=== PATIENT | female | born 1980 | race Caucasian/White ===

== ENCOUNTER 2016-09-02 21:35 | Emergency (ER) | payer BC, OTHER ==
--- NOTE | ~2016-09-02 | CT2 ---
[facility] A Service of [facility] / [facility] RADIOLOGY TEXT RESULTS PATIENT: CHANTAL JULIAN LOCATION: SED : [birth year] UNIT #: [id number] AGE: [address]: Elsi Mcclain MD SEX: F ORDER DR: [id number] [address] [address] [id number] E MR#: [id number] Acc #: [id number] NAME: CHANTAL JULIAN : 1980 SEX: F STUDY DATE/TIME: 09/03/2016 0:37 UNIT: SED ROOM: STUDY DESCRIPTION: CT Abd and Pelv W Cont Attending Physician: Elsi Mcclain M.D. Ordering Physician: Elsi Mcclain M.D. Primary Care Physician: Jaron Roque M.D. MEDICAL IMAGING REPORT This report is preliminary unless electronic signature is present. EXAM CT abdomen and pelvis, with contrast HISTORY Abdominal pain and distention for 4 hours. Elevated white blood cell count. COMPARISON None TECHNIQUE The patient was given 100 mL of Isovue-370, and axial 5-mm images were obtained through the abdomen and pelvis. Sagittal and coronal reconstructions were generated. This CT exam was performed with one or more of the following radiation dose reduction techniques: automatic exposure control, adjustment of mA and/or kV according to patient size, and iterative reconstruction. FINDINGS The lung bases are clear. The liver, gallbladder, spleen, pancreas, adrenal glands, and kidneys are normal in appearance. The aorta is normal in size, and there is no adenopathy. The bowel is normal. The uterus, adnexal regions, and bladder are normal. I do not see the appendix, but I do not see any evidence of appendicitis. The bones are unremarkable. IMPRESSION 1. It is difficult to see the appendix, but I do not see any evidence of appendicitis. 2. Study appears normal. [facility] A Service of [facility] / [facility] RADIOLOGY TEXT RESULTS PATIENT: CHANTAL JULIAN LOCATION: SED : [birth year] UNIT #: [id number] AGE: [address]: Elsi Mcclain MD SEX: F ORDER DR: Dictated by... Keegan Pickard M.D. THIS IS AN ELECTRONICALLY VERIFIED REPORT Keegan Pickard M.D. at 09/03/2016 1:43 PM MENDEL/vu TD: 09/03/2016 13:40 JOB #: [id number] MEDICAL IMAGING REPORT Page 1 of 1
[~2016-09-02 21:35] MED LIST: BACTRIM DS TABL1 TA1 PO; BAYER CHEWABLE81 MG PO; CARTIA XT PO; GARCINIA CAMBO1 EACH; IBUPROFEN800 MG PO; LEVOTHYROXINE88 MCG PO; NAPROSYN500 MG PO; NITRO TOP; NO MEDICATIONS; PAROXETINE HCL20 M1 PO; PRILOSEC20 MG PO; PYRIDIUM PO; TUSSIONEX PENN473 ML PO; VISTARIL PO; VOLTAREN75 MG PO
[2016-09-02 23:26] LABS: BASOPHIL# 0.1 X10e3 (0-0.3); BASOPHIL% 0.8 % (0-2.5); DIFF IND NO; EOSINOPHIL# 0.5 X10e3 (0-0.7); EOSINOPHIL% 4.1 % (0.0-7.0); HEMATOCRIT 40.6 % (35.0-45.0); HEMOGLOBIN 13.5 gm/dL (12.0-16.0); LYMPHOCYTE# 3.4 X10e3 (1.0-3.5); LYMPHOCYTE% 29.5 % (17.0-45.0); MEAN CELL VOLUME 87.4 FL (83-96); MEAN CORPUSCULAR HEMOGLOBIN 29.1 PG (28-34); MEAN CORPUSCULAR HGB CONC 33.3 g/dL (30-36); MEAN PLATELET VOLUME 9.5 FL (6.5-11.5); MONOCYTE# 0.7 X10e3 (0-1.0); MONOCYTE% 6.4 % (3.0-12.0); NEUTROPHIL# 6.8 X10e3 (1.5-7.1); NEUTROPHIL% 59.2 % (40-75); PLATELET COUNT 185 X10e3 (140-420); RED BLOOD COUNT 4.65 X10e (3.90-5.30); WHITE BLOOD COUNT 11.5 X10e3 (4.0-10.5)
[2016-09-02 23:48] LABS: ALBUMIN SERUM 3.6 g/dL (3.5-5.0); BILIRUBIN, DIRECT 0.1 mg/dL (0.0-0.2); BILIRUBIN,INDIRECT 0.3 mg/dL (0.0-0.9); BILIRUBIN,TOTAL 0.4 mg/dL (0.2-2.0); BUN/CREATININE RATIO 21.66; CALCIUM SERUM 8.8 mg/dL (8.4-10.2); CREATININE SERUM 0.6 mg/dL (0.6-1.4); GLOM FILT RATE Estimated 117.3 mL/min (>60); PROTEIN TOTAL SERUM 6.3 g/dL (6.0-8.3)
[2016-09-03 00:11] LABS: URINE APPEARANCE CLEAR; URINE BILIRUBIN NEG (NEG); URINE BLOOD 1+ (NEG); URINE COLOR YELLOW; URINE GLUCOSE NEG (NORM); URINE KETONE NEG (NEG); URINE LEUKOCYTE ESTERASE NEG (NEG); URINE NITRATE NEG (NEG); URINE PROTEIN NEG (NEG); URINE SOURCE CLEAN CATCH; URINE UROBILINOGEN 0.2 MG/DL (NORM)
[2016-09-03 00:12] LABS: MICRO INDICATED? YES
[2016-09-03 00:13] LABS: CULTURE INDICATED? NO; URINE BACTERIA NEG (NEG); URINE SQUAMOUS EPITHELIAL CELL OCCAS /[HPF]; URINE TRANSITIONAL EPI CELLS FEW /[HPF]; URINE WBC 0-2 /[HPF] (0-5)
== END 2016-09-03 01:14 | disposition home or self-care (01) ==
LOC: SED 21:35
PROVIDERS: Emergency Medicine
DX: R10.84 Generalized abdominal pain (principal); E03.9 Hypothyroidism, unspecified; Z90.49 Acquired absence of other specified parts of digestive tract; F17.210 Nicotine dependence, cigarettes, uncomplicated
CPT/HCPCS: 36415; 74177; 80048; 80076; 81003; 83690; 84443; 84703; 85025; 96361; 96374; 96375; 99284; J2270; J2405; Q9967

== ENCOUNTER 2016-09-16 04:08 | Emergency (ER) | payer BC, OTHER ==
[~2016-09-16] VITALS: Ht 157.5 cm; Wt 103.0 kg
[2016-09-16 06:04] LABS: MICRO INDICATED? YES; URINE APPEARANCE CLEAR; URINE BILIRUBIN NEG (NEG); URINE BLOOD 2+ (NEG); URINE COLOR YELLOW; URINE GLUCOSE NEG (NORM); URINE KETONE NEG (NEG); URINE LEUKOCYTE ESTERASE NEG (NEG); URINE NITRATE NEG (NEG); URINE PH 5.5 (5-8); URINE PROTEIN NEG (NEG); URINE SOURCE CLEAN CATCH; URINE UROBILINOGEN 0.2 MG/DL (NORM)
[2016-09-16 06:05] LABS: CULTURE INDICATED? NO; URINE BACTERIA NEG (NEG); URINE SQUAMOUS EPITHELIAL CELL MODERATE /[HPF]; URINE TRANSITIONAL EPI CELLS FEW /[HPF]; URINE WBC 0-2 /[HPF] (0-5)
== END 2016-09-16 05:07 | disposition home or self-care (01) ==
LOC: SED 04:08
PROVIDERS: Emergency Medicine
DX: M54.5 Low back pain (principal); R03.0 Elevated blood-pressure reading, without diagnosis of hypertension; F17.210 Nicotine dependence, cigarettes, uncomplicated
CPT/HCPCS: 81003; 96374; 99283; J1885

== ENCOUNTER 2016-11-10 14:37 | Emergency (ER) | payer BC, OTHER ==
[~2016-11-10] VITALS: Ht 157.5 cm; Wt 112.5 kg
--- NOTE | ~2016-11-10 | CT52 ---
[facility] A Service of [facility] RADIOLOGY TEXT RESULTS PATIENT: CHANTAL JULIAN LOCATION: SED : [birth year] UNIT #: [id number] AGE: [address]: April Watson MD SEX: F ORDER DR: [id number] [place] [address] [id number] E MR#: [id number] Acc #: [id number] NAME: CHANTAL JULIAN : 1980 SEX: F STUDY DATE/TIME: 11/10/2016 15:55 UNIT: SED ROOM: STUDY DESCRIPTION: CT Cervical Spine Wo Cont Attending Physician: April Watson M.D. Ordering Physician: April Watson M.D. Primary Care Physician: Jaron Roque M.D. MEDICAL IMAGING REPORT This report is preliminary unless electronic signature is present. EXAM CT cervical spine without contrast. HISTORY Neck pain, hands and arms, numbness and tingling for vud-ol-vgsyq weeks. No known injury. TECHNIQUE Thin section axial images performed through the cervical spine without contrast. Multiplanar reconstructed images reviewed. This CT exam was performed with one or more of the following radiation dose reduction techniques: automatic exposure control, adjustment of mA and/or kV according to patient size, and iterative reconstruction. FINDINGS Normal spinal alignment. No fracture. Craniocervical and cervicothoracic junctions appear normal. Atlantoaxial joint unremarkable. No significant spinal or foraminal stenosis identified on this non myelographic CT. Upper thorax and paravertebral soft tissues unremarkable. IMPRESSION Negative CT cervical spine. Please note non myelographic CT limited for evaluation of cervical disc disease. Dictated by... Jaylon Huber M.D. THIS IS AN ELECTRONICALLY VERIFIED REPORT Jaylon Huber M.D. at 11/11/2016 10:04 AM JMS/pasha [facility] A Service of [facility] RADIOLOGY TEXT RESULTS PATIENT: CHANTAL JULIAN LOCATION: SED : [birth year] UNIT #: [id number] AGE: [address]: April Watson MD SEX: F ORDER DR: TD: 11/11/2016 09:56 JOB #: [id number] MEDICAL IMAGING REPORT Page 1 of 1
[2016-11-10 15:34] LABS: URINE SOURCE CLEAN CATCH
[2016-11-10 15:36] LABS: URINE APPEARANCE HAZY; URINE BILIRUBIN NEG (NEG); URINE BLOOD 1+ (NEG); URINE COLOR YELLOW; URINE GLUCOSE NEG (NORM); URINE KETONE NEG (NEG); URINE LEUKOCYTE ESTERASE NEG (NEG); URINE NITRATE NEG (NEG); URINE PROTEIN NEG (NEG); URINE SPECIFIC GRAVITY 1.015 (1.003-1.035)
[2016-11-10 15:37] LABS: MICRO INDICATED? YES
[2016-11-10 15:39] LABS: CULTURE INDICATED? YES; URINE BACTERIA 1+ (NEG); URINE RBC 0-2 /[HPF] (0-2); URINE SQUAMOUS EPITHELIAL CELL MODERATE /[HPF]; URINE WBC 0-2 /[HPF] (0-5)
[2016-11-10 15:48] LABS: AMPHETAMINE NEG (NEG); BARBITURATES NEG (NEG); BENZODIAZEPINES NEG (NEG); COCAINE NEG (NEG); MARIJUANA NEG (NEG); OPIATES NEG (NEG); TRICYCLIC ANTIDEPRESSANTS NEG (NEG); U METHADONE NEG (NEG)
== END 2016-11-10 16:48 | disposition home or self-care (01) ==
LOC: SED 14:37
PROVIDERS: Student in an Organized Health Care Education/Training Program
DX: M54.5 Low back pain (principal); M79.601 Pain in right arm; M79.602 Pain in left arm; F17.200 Nicotine dependence, unspecified, uncomplicated
CPT/HCPCS: 72125; 80307; 81003; 84703; 87086; 99284